=== PATIENT | female | born 2000 | race Caucasian/White ===

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

== ENCOUNTER 2022-02-23 17:49 | Emergency (ER) | payer OTHER, SELFPAY ==
[2022-02-23 17:58] VITALS: BP 109/68; PULSE 69; RESP 18; TEMP 36.4; O2SAT 100
--- NOTE | 2022-02-23 17:58 | ED.URI ---
HPI - URI/Sore Throat General Chief Complaint: Upper Respiratory Infection Stated Complaint: Sore Throat,Cough,Congestion,Bilateral Ear Time Seen by Provider: 02/23/22 17:59 Source: patient and RN notes reviewed Mode of arrival: ambulatory Limitations: no limitations History of Present Illness HPI Narrative: 22-year-old female presented for complaints of sinus pressure and congestion, cough and bilateral ear pain for 3 weeks. She has been away at college and has been taking [id number] medications for symptoms. She denies associated shortness of breath, wheezing, sore throat, nausea, vomiting, diarrhea, fevers or chills. She has not been visited for COVID, she did have COVID in 10/2021. MD elicited complaint: cough Related Data Home Medications Medication Instructions Recorded Confirmed copper [ParaGard T 380A] See Rx Instructions .ROUTE .COMPLEX 02/23/22 02/23/22 dextroamphetamine-amphetamine 20 mg PO PRN PRN 02/23/22 02/23/22 escitalopram oxalate 10 mg PO DAILY 02/23/22 02/23/22 lorazepam 0.5 mg PO PRN PRN 02/23/22 02/23/22 Allergies Allergy/AdvReac Type Severity Reaction Status Date / Time No Known Allergies Allergy Verified 02/23/22 17:52 Review of Systems Review of Systems: CONSTITUTIONAL: Denies malaise, chills, sweats, fever EYES: Denies visual changes, redness, or discharge ENT: Reports rhinorrhea, congestion, sinus pain, otalgia CARDIOVASCULAR: Denies chest pain, palpitations, edema RESPIRATORY: Reports cough, post nasal drainage. Denies dyspnea GASTROINTESTINAL: Denies abdominal pain, nausea, vomiting, diarrhea SKIN: Denies rash or itching MUSCULOSKELETAL: Denies myalgia NEUROLOGIC: Endorses headache [facility] Past Medical History Medical History (Updated 02/23/22 @ 18:08 by Rica Cooper APRN) Lab test positive for detection of COVID-19 virus May 2020 Surgical History Surgical History H/O adenoidectomy History of tonsillectomy Family History Family History Other Malignant neoplasm of prostate Social History Social History Gender identity (if verbalized by the patient): Female Exam Narrative: GENERAL: Ill-appearing, nontoxic HEAD: Normocephalic EYES: conjunctivae clear ENT: Mucous membranes moist. TMs pearly gaming with dull light reflex bilaterally, fluid right TM; no tragal tenderness. Oropharynx erythematous without lesions or exudate, tonsils absent, no drooling, no hoarseness, no trismus, uvula midline. No tripod positioning, muffled voice, soft palate or pharyngeal wall bulging NECK: Supple. No lymphadenopathy CHEST: Clear to auscultation, breath sounds equal. No wheezing, rhonchi, rales, or stridor. No respiratory distress, speaks in full sentences. HEART: Regular rate and rhythm. No murmur heard. SKIN: Warm, dry, no rash. NEURO: Alert and oriented x3. PSYCH: Normal mood and affect Course Course Emergency Course: Patient is aware of diagnosis, understands and agrees to treatment plan. Anticipatory guidance given. Patient agrees to follow-up as directed and is aware of reasons to seek care at the emergency department. Portions of this record may have been created with voice recognition software Level of Care: Express Care Visit Vital Signs Vital signs: reviewed MDM - URI/Sore Throat MDM Narrative Medical decision making narrative: Pt experiencing sx x3 weeks, PCN allergy. Rx doxy given. Advised supportive treatments and pcp f/u. Differential Diagnosis Differential diagnosis: Likely upper respiratory infection, otitis media, sinusitis and viral infection Discharge Plan Discharge Clinical Impression: Upper respiratory infection Qualifiers: URI type: unspecified URI Qualified Code(s): J06.9 - Acute upper respiratory infection, unspecified Patient Disposition: Home, Self-Care Condition:
--- NOTE | 2022-02-23 18:13 | ED.URI ---
HPI - URI/Sore Throat General Chief Complaint: Upper Respiratory Infection Stated Complaint: Sore Throat,Cough,Congestion,Bilateral Ear Time Seen by Provider: 02/23/22 17:59 Source: patient and RN notes reviewed Mode of arrival: ambulatory Limitations: no limitations History of Present Illness MD elicited complaint: cough Related Data Home Medications Medication Instructions Recorded Confirmed copper [ParaGard T 380A] See Rx Instructions .ROUTE .COMPLEX 02/23/22 02/23/22 dextroamphetamine-amphetamine 20 mg PO PRN PRN 02/23/22 02/23/22 escitalopram oxalate 10 mg PO DAILY 02/23/22 02/23/22 lorazepam 0.5 mg PO PRN PRN 02/23/22 02/23/22 Allergies Allergy/AdvReac Type Severity Reaction Status Date / Time Penicillins Allergy rash Verified 02/23/22 19:07 Review of Systems Review of Systems: CONSTITUTIONAL: denies malaise, chills, sweats, fever EYES: Denies visual changes, redness, or discharge ENT: Reports rhinorrhea, congestion, sinus pain, otalgia, sore throat CARDIOVASCULAR: Denies chest pain, palpitations, edema RESPIRATORY: Reports cough, post nasal drainage. Denies dyspnea GASTROINTESTINAL: Denies abdominal pain, nausea, vomiting, diarrhea SKIN: Denies rash or itching MUSCULOSKELETAL: denies myalgia NEUROLOGIC: Denies headache [facility] Past Medical History Medical History (Updated 02/23/22 @ 18:08 by Rica Cooper APRN) Lab test positive for detection of COVID-19 virus May 2020 Surgical History Surgical History H/O adenoidectomy History of tonsillectomy Family History Family History Other Malignant neoplasm of prostate Social History Social History Gender identity (if verbalized by the patient): Female Exam Narrative: GENERAL: Ill-appearing, nontoxic HEAD: Normocephalic EYES: conjunctivae clear ENT: Mucous membranes moist. TM pearly gaming with dull light reflex bilaterally; no tragal tenderness. Oropharynx erythematous without lesions or exudate, tonsils absent, no drooling, no hoarseness, no trismus, uvula midline. NECK: Supple. No lymphadenopathy CHEST: Clear to auscultation, breath sounds equal. No respiratory distress, speaks in full sentences. HEART: Regular rate and rhythm. No murmur heard. SKIN: Warm, dry, no rash. NEURO: Alert and oriented x3. PSYCH: Normal mood and affect Course Course Emergency Course: Patient is aware of diagnosis, understands and agrees to treatment plan. Anticipatory guidance given. Patient agrees to follow-up as directed and is aware of reasons to seek care at the emergency department. Portions of this record may have been created with voice recognition software Level of Care: Express Care Visit Vital Signs Vital signs: Vital Signs Temperature 97.6 F 02/23/22 17:58 Pulse Rate 69 02/23/22 17:58 Respiratory Rate 18 02/23/22 17:58 Blood Pressure 109/68 02/23/22 17:58 Pulse Oximetry 100 02/23/22 17:58 Temperature 97.6 F 02/23/22 17:58 Pulse Rate 69 02/23/22 17:58 Respiratory Rate 18 02/23/22 17:58 Blood Pressure 109/68 02/23/22 17:58 Pulse Oximetry 100 02/23/22 17:58 reviewed MDM - URI/Sore Throat MDM Narrative Medical decision making narrative: Symptoms present for over 10 days, antibiotic prescribed, penicillin allergy- rash. Advised to continue supportive treatment and follow-up with PCP. Differential Diagnosis Differential diagnosis: Likely upper respiratory infection, otitis media, sinusitis and influenza Discharge Plan Discharge Clinical Impression: Upper respiratory infection Qualifiers: URI type: unspecified URI Qualified Code(s): J06.9 - Acute upper respiratory infection, unspecified Patient Disposition: Home, Self-Care Condition: Stable Instructions: Antibiotic Form, Sinusitis (ED) Additional Instructions: Recomm
== END 2022-02-23 18:10 | disposition home or self-care (01) ==
PROVIDERS: Emergency Provider Nurse Practitioner Family; PCP Family Medicine Sports Medicine
DX: J06.9 Acute upper respiratory infection, unspecified (principal); Z86.16 Personal history of COVID-19
CPT/HCPCS: 99213; G0463